=== PATIENT | male | born 1945 | race Caucasian/White ===

== ENCOUNTER 2017-03-25 15:02 | Inpatient (IN) | payer OTHER ==
[~2017-03-25] VITALS: Ht 172.7 cm; Wt 83.6 kg
[2017-03-25 15:57] LABS: PLATELET COUNT 131 x10^3mcL (130-400)
[2017-03-25 16:01] LABS: BASOPHIL % 0 % (0-2)
[2017-03-25 16:21] LABS: BILIRUBIN TOTAL 0.79 mg/dL (0.20-1.00); CARBON DIOXIDE 32.4 mmol/L (21-32); CREATININE SERUM 3.3 mg/dL (0.7-1.3); POTASSIUM SERUM 5.2 mmol/L (3.5-5.1); TOTAL PROTEIN, SERUM 7.6 g/dL (6.4-8.2)
[2017-03-25 16:25] LABS: ALBUMIN 2.8 g/dL (3.4-5.0)
[2017-03-25 17:35] LABS: CHOLESTEROL/HDL RATIO 4.3; MAGNESIUM 2.2 mg/dL (1.8-2.4); PHOSPHOROUS 5.9 mg/dL (2.5-4.9)
[2017-03-25 17:36] VITALS: BP 151/52
[2017-03-25 17:42] LABS: T3 TOTAL 0.47 ng/mL
[2017-03-25 18:04] LABS: FREE T4 1.2 ng/dL (0.76-1.46); FREE THYROXINE INDEX 2.4 ug/dL (1.4-4.5); T4(THYROXINE) 6.9 ug/dL (4.7-13.3)
[2017-03-25 19:30] VITALS: BP 139/55
[2017-03-26 00:46] LABS: UA SPECIFIC GRAVITY 1.025 (1.005-1.035); microscopic required? YES; urine erythrocyte TRACE (NEGATIVE)
[2017-03-26 01:00] LABS: AMPHETAMINE QUAL UR NONE DETECTED (NEG <=1000)
[2017-03-26 05:57] VITALS: BP 147/67
[2017-03-26 06:39] LABS: RED CELL DISTRIBUTION WIDTH 12.6 % (11.5-14.5)
[2017-03-26 06:43] LABS: BASOPHIL % 0 % (0-2); PLATELET COUNT 110 x10^3mcL (130-400)
[2017-03-26 06:50] LABS: BILIRUBIN TOTAL 0.88 mg/dL (0.20-1.00); CARBON DIOXIDE 31.4 mmol/L (21-32); CREATININE SERUM 3.2 mg/dL (0.7-1.3); POTASSIUM SERUM 4.7 mmol/L (3.5-5.1); TOTAL PROTEIN, SERUM 6.8 g/dL (6.4-8.2)
[2017-03-26 06:53] LABS: ALBUMIN 2.5 g/dL (3.4-5.0); CALCIUM 15.5 mg/dL (8.5-10.1)
[2017-03-26 09:40] VITALS: BP 146/57
[2017-03-26 14:30] VITALS: BP 157/57
[2017-03-26 17:44] VITALS: BP 137/48
[2017-03-26 21:33] VITALS: BP 113/71
[2017-03-26 21:57] VITALS: BP 142/64
[2017-03-27 05:23] VITALS: BP 122/53
[2017-03-27 07:08] LABS: CARBON DIOXIDE 28.4 mmol/L (21-32); CREATININE SERUM 3.2 mg/dL (0.7-1.3); POTASSIUM SERUM 4.4 mmol/L (3.5-5.1); RED CELL DISTRIBUTION WIDTH 12.9 % (11.5-14.5)
[2017-03-27 07:11] LABS: PLATELET COUNT 101 x10^3mcL (130-400)
[2017-03-27 07:14] LABS: CALCIUM 14.4 mg/dL (8.5-10.1)
[2017-03-27] MEDS ORDERED: NOR10T PO (09:22)
[2017-03-27 09:42] VITALS: BP 132/60
[2017-03-27 10:45] LABS: BAND NEUTROPHIL 10 % (0-10); BASOPHIL 0 % (0-2); METAMYELOCTE 2 % (0-2); MONOCYTE 5 % (0-7); SEGMENTED NEUTROPHILS 78 % (37-75)
[2017-03-27 10:46] LABS: PLATELET MORPHOLOGY PLATELETS DECREASED
[2017-03-27] MEDS ORDERED: REG5 PO ×2 (12:07→13:57)
[2017-03-27 12:50] VITALS: BP 132/60
[2017-03-27 13:38] VITALS: BP 139/61
[2017-03-27 16:10] VITALS: BP 131/53
[2017-03-27 20:15] VITALS: BP 140/51
[2017-03-27 21:44] VITALS: Ht 172.7 cm; Wt 83.6 kg
[2017-03-28 05:07] VITALS: BP 129/52
[2017-03-28 06:36] LABS: RED CELL DISTRIBUTION WIDTH 13.6 % (11.5-14.5)
[2017-03-28 06:40] LABS: BASOPHIL % 0 % (0-2); PLATELET COUNT 93 x10^3mcL (130-400)
[2017-03-28 06:49] LABS: CALCIUM 12.2 mg/dL (8.5-10.1); CARBON DIOXIDE 26.4 mmol/L (21-32); CREATININE SERUM 3.3 mg/dL (0.7-1.3); PHOSPHOROUS 4.2 mg/dL (2.5-4.9); POTASSIUM SERUM 3.8 mmol/L (3.5-5.1)
[2017-03-28 09:22] VITALS: BP 134/54
[2017-03-28 17:00] VITALS: BP 148/53
[2017-03-28 21:29] VITALS: BP 113/40
[2017-03-29] VITALS: BP 113/40
[2017-03-29 05:41] VITALS: BP 107/41
[2017-03-29 06:19] LABS: BASOPHIL % 0.2 % (0-2); RED CELL DISTRIBUTION WIDTH 13.1 % (11.5-14.5)
[2017-03-29 06:54] LABS: CREATININE SERUM 3.2 mg/dL (0.7-1.3); POTASSIUM SERUM 3.5 mmol/L (3.5-5.1)
[2017-03-29 06:57] LABS: PLATELET COUNT 91 x10^3mcL (130-400)
[2017-03-29 09:54] VITALS: BP 112/58
[2017-03-29 13:41] VITALS: BP 117/48
[2017-03-29 17:42] VITALS: BP 108/49
[2017-03-29 21:21] VITALS: BP 129/53
[2017-03-30 05:41] VITALS: BP 124/49
[2017-03-30 06:29] LABS: CALCIUM 10.2 mg/dL (8.5-10.1); CARBON DIOXIDE 24.1 mmol/L (21-32); POTASSIUM SERUM 3.5 mmol/L (3.5-5.1)
[2017-03-30 06:55] LABS: RED CELL DISTRIBUTION WIDTH 13.5 % (11.5-14.5)
[2017-03-30 07:20] LABS: BASOPHIL % 0 % (0-2); PLATELET COUNT 94 x10^3mcL (130-400)
[2017-03-30 10:40] VITALS: BP 117/48
[2017-03-30] MEDS ORDERED: LEVOFLOXACIN500 M1 PO (14:34)
[2017-03-30] MEDS ORDERED: LAC PO (14:34)
[2017-03-30] MEDS ORDERED: CLEOCIN HCL300 MG PO (14:34)
== END 2017-03-30 16:48 | disposition home or self-care (01) | DRG 435 ==
LOC: ED 15:02 → DU 16:28 → MU 03-28 10:07
PROVIDERS: Emergency Medicine; ADMIT Family Medicine
DX: C22.7 Other specified carcinomas of liver (principal); N17.0 Acute kidney failure with tubular necrosis; E43 Unspecified severe protein-calorie malnutrition; J69.0 Pneumonitis due to inhalation of food and vomit; N39.0 Urinary tract infection, site not specified; C79.51 Secondary malignant neoplasm of bone; D68.69 Other thrombophilia; E87.2 Acidosis; E11.21 Type 2 diabetes mellitus with diabetic nephropathy; E11.51 Type 2 diabetes mellitus with diabetic peripheral angiopathy without gangrene; E11.65 Type 2 diabetes mellitus with hyperglycemia; I10 Essential (primary) hypertension; E87.5 Hyperkalemia; E83.52 Hypercalcemia; J84.10 Pulmonary fibrosis, unspecified; R80.9 Proteinuria, unspecified; K59.00 Constipation, unspecified; D69.6 Thrombocytopenia, unspecified; E03.9 Hypothyroidism, unspecified; E78.5 Hyperlipidemia, unspecified; E83.39 Other disorders of phosphorus metabolism; N28.1 Cyst of kidney, acquired; Z68.29 Body mass index [BMI] 29.0-29.9, adult
CPT/HCPCS: 36600; 82962; 83880; 84439; 90658; 97110-GP; 97116-GP; 97530-GP; J0696; J2430; J3010; J3490; J7030; J7620; Q0092